=== PATIENT | female | born 1990 | race Caucasian/White ===

== ENCOUNTER 2018-10-24 18:39 | Emergency (ER) | payer BC ==
[2018-10-24 19:26] VITALS: TEMP 98.3; BMI 30.2
--- NOTE | 2018-10-24 20:14 | PDOC ---
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 the patient reports a LNPM of 09/10/18 and took a test 3 days ago that was positive and she started taking insertional progesterone at that time. She noted some vaginal spotting 3 days ago that was brown. She denies any prior history of ectopic pregnancies. She deneis fever, chest pain, shortness of breath, current abdominal pain, nausea, vomiting, dysuria, hematuria, diarrhea, cosntiaption. Past History - Past Medical History Allergies/Adverse Reactions: Allergies Allergy/AdvReac Type Severity Reaction Status Date / Time No Known Allergies Allergy Verified 10/24/18 18:57 Home Medications: Ambulatory Orders Nitrofurantoin Macrocrystal [Macrodantin -] 100 mg PO BID #10 capsule 10/24/18 Nitrofurantoin Macrocrystal [Macrodantin -] 100 mg PO BID #10 capsule 10/24/18 COPD: No - Immunization History Immunization Up to Date: Yes - Suicide/Smoking/Psychosocial Hx Smoking History: Never smoked Information on smoking cessation initiated: No Hx Alcohol Use: No Drug/Substance Use Hx: No Review of Systems - Review of Systems Able to Perform ROS?: Yes Comments:: 10/24/18 23:12 GENERAL/CONSTITUTIONAL: No fever or chills. No weakness. HEAD, EYES, EARS, NOSE AND THROAT: No change in vision. No ear pain or discharge. No sore throat. CARDIOVASCULAR: No chest pain or shortness of breath RESPIRATORY: No cough, wheezing, or hemoptysis. GASTROINTESTINAL: No nausea, vomiting, diarrhea or constipation. GENITOURINARY: No dysuria, frequency, or change in urination. MUSCULOSKELETAL: No joint or muscle swelling or pain. No neck or back pain. SKIN: No rash NEUROLOGIC: No headache, vertigo, loss of consciousness, or change in strength/ sensation. ENDOCRINE: No increased thirst. No abnormal weight change HEMATOLOGIC/LYMPHATIC: No anemia, easy bleeding, or history of blood clots. ALLERGIC/IMMUNOLOGIC: No hives or skin allergy. Is the patient limited Mauritian proficient: No *Physical Exam - Vital Signs Last Vital Signs Temp Pulse Resp BP Pulse Ox 98.3 F 111 H 18 119/74 99 10/24/18 18:58 10/24/18 18:58 10/24/18 18:58 10/24/18 18:58 10/24/18 18:58 - Physical Exam Comments: 10/24/18 21:25 GENERAL: Awake, alert, and fully oriented, in no acute distress HEAD: No signs of trauma, normocephalic, atraumatic EYES: EOMI, sclera anicteric, conjunctiva clear ENT: oropharynx clear without exudates. Moist mucosa NECK: Normal ROM, supple LUNGS: No distress, speaks full sentences, clear to auscultation bilaterally HEART: Regular rate and rhythm, normal S1 and S2, no murmurs, rubs or gallops, peripheral pulses normal and equal bilaterally. ABDOMEN: Soft, nontender, normoactive bowel sounds. No guarding, no rebound. No masses EXTREMITIES : Normal inspection, Normal range of motion, no edema. No clubbing or cyanosis. NEUROLOGICAL: Cranial nerves II through XII grossly intact. 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 the patient reports a LNPM of 09/10/18 and took a test 3 days ago that was positive and she started taking insertional progesterone at that time. She noted some vaginal spotting 3 days ago that was brown. She denies any prior history of ectopic pregnancies. She deneis fever, chest pain, shortness of breath, current abdominal pain, nausea, vomiting, dysuria, hematuria, diarrhea, cosntiaption. ED Course: ectopic vs iup vs spontaneous cbc, cmp, type and screen, coags labs wnl urine with small uti tvus with 5 week 5 days gestation, small echogenic structure 10/24/18 23:18 rhogam, abx obgyn referral, recheck beta hcg instructions, strict return precautiosn. d/c *DC/Admit/Observation/Transfer Diagnosis at time of Disposition: Vaginal bleeding, Abdominal pain - Discharge Dispostion Disposition: HOME Condition at time of disposition: Stable Decision to Admit order: No - Prescriptions Prescriptions: Nitrofurantoin Macrocrystal [Macrodantin -] 100 mg PO BID #10 capsule Nitrofurantoin Macrocrystal [Macrodantin -] 100 mg PO BID #10 capsule - Referrals Referrals: Abeba Harvey MD [Staff Physician] - Radha Castano DO [Staff Physician] - - Patient Instructions Printed Discharge Instructions: DI for Vaginal Bleeding During , DI for Vaginal Bleeding Additional Instructions: You were seen in the ED for complaints of abdominal pain and vaginal spotting. In the ED you were evaluated with labwork and imaging. Your results showed a small urinary tract infection and an intrauterine gestation of 5 weeks and 5 days. There does not appear to be an acute need for immediate hospitalization. You are advised to follow up with your Primary Care Physician within 1 week. You were given a referral to OBGYN and should follow up within 1 week. You were given a prescription for Nitrofurantoin and please take medication as prescribed. Recheck beta HCG in 2 days. Return to the ED for recheck if you cannot see your Primary Care or OBGYN within that time. Return to the ED immediately if you experience vaginal bleeding, worsening abdominal pain, fevers, nausea, vomiting or shortness of breath. - Post Discharge Activity
[2018-10-24 21:07] LABS: BASO % 0.6 % (0-2.0); EOS % 0.9 % (0-4.5); HEMATOCRIT 38.5 % (32.4-45.2); HEMOGLOBIN 12.5 GM/dL (10.7-15.3); LYMPH % 25.2 % (8-40); MCH 30.8 pg (25.7-33.7); MCHC 32.5 g/dl (32.0-36.0); MEAN CELL VOLUME 94.7 fl (80-96); MEAN PLT VOLUME 9.5 fl (7.5-11.1); MONO % 12.2 % (3.8-10.2); NEUT % 61.1 % (42.8-82.8); PLATELET COUNT 227 K/MM3 (134-434); RBC 4.07 M/mm3 (3.60-5.2); RDW 13.6 % (11.6-15.6)
[2018-10-24 21:29] LABS: PROTHROMBIN TIME (PATIENT) 11.8 SEC (9.7-13.0)
[2018-10-24 21:31] LABS: ACTIVATED PTT 33.2 SECONDS (25.2-36.5)
[2018-10-24 21:36] LABS: EPI CELLS 4.2 /HPF (0-5/HPF); PH,URINE 5.5 (5.0-8.0); URINE APPEARANCE CLEAR; URINE BACTERIA 30.3 /hpf (NEGATIVE); URINE BILIRUBIN NEGATIVE (NEGATIVE); URINE CASTS 2 /lpf (0-8); URINE COLOR YELLOW; URINE GLUCOSE (UA) NEGATIVE (NEGATIVE); URINE KETONE NEGATIVE (NEGATIVE); URINE LEUK ESTERASE 1+ (NEGATIVE); URINE NITRITE NEGATIVE (NEGATIVE); URINE PROTEIN NEGATIVE (NEGATIVE); URINE RBC 4 /hpf (0-4); URINE UROBILINOGEN 0.2 mg/dL (0.2-1.0); URINE WBC 9 /hpf (0-5)
[2018-10-24 21:38] LABS: ALBUMIN 4.3 g/dl (3.4-5.0); BILIRUBIN,TOTAL 0.3 mg/dL (0.2-1); CALCIUM 9.5 mg/dL (8.5-10.1); CREATININE 0.6 mg/dL (0.55-1.3); POTASSIUM 3.6 mmol/L (3.5-5.1); TOT PROT 8.1 g/dl (6.4-8.2)
[2018-10-24 21:45] LABS: YEAST NONE SEEN (NEGATIVE)
--- NOTE | 2018-10-24 22:46 | PDOC ---
Documentation entered by Courtney Azevedo SCRIBE, acting as scribe for Mary Ram DO. Mary Ram DO: This documentation has been prepared by the Roberto Carlos sparks Aiswarya, SCRIBE, under my direction and personally reviewed by me in its entirety. I confirm that the documentation accurately reflects all work, treatment, procedures, and medical decision making performed by me. Attending Attestation - Resident Resident Name: Yakelin Márquez - ED Attending Attestation I have performed the following: I have examined & evaluated the patient, The case was reviewed & discussed with the resident, I agree w/resident's findings & plan - HPI HPI: 10/24/18 21:41 The patient is a 28 year old female [id number], with a significant PMH of endometritis and multiple miscarriages, who is 6 weeks , presents to the emergency department with bilateral cramping that began today around 5 pm. The patient states she experienced mild spotting 3 days ago and took a insertional progesterone for the past 3 days. Patient also state she took a test 3 days ago and reports it to be positive. Today she complains of non radiating constant bilateral cramping with severity of 7/10. LMP was September 10. Denies any vaginal odor, pruritus or discharge. Denies fever, chills, nausea, vomit, diarrhea and constipation.Denies dysuria, frequency, urgency and hematuria. Allergies: NKDA Past surgical history:None reported Social history: None reported PCP: None reported - Physicial Exam PE: 10/24/18 21:41 Agrees with the residents note. - Medical Decision Making 10/24/18 22:45 28-year-old gravid female with pelvic cramping and spotting Ultrasound shows an approximate 5 week size sac with no detectable heart rate Patient is currently pain-free She is Rh- and did have some associated spotting, Eden will be given prior to discharge Patient given follow-up at a local [facility] office as requested
[2018-10-24] MEDS ORDERED: RHO(D) IMMUNE GLOBULIN 1,500 UNIT DISP.SYRIN IM ONE (22:50)
[2018-10-24] MEDS ORDERED: NITROFURANTOIN MACROCRYSTAL 50 MG CAPSULE (FP) PO SCH (23:00)
[2018-10-24] MEDS ORDERED: NITROFURANTOIN MACROCRYSTAL 50 MG CAPSULE (FP) ONE (23:15)
[2018-10-24 23:37] VITALS: BP 134/75; PULSE 79
== END 2018-10-24 23:37 | disposition home or self-care (01) ==
LOC: JER 18:39
PROC: 3E0337Z Introduction of Electrolytic and Water Balance Substance into Peripheral Vein, Percutaneous Approach (ICD-10-PCS; principal; 2018-10-24)
DX: O26.891 Other specified pregnancy related conditions, first trimester (principal); Z3A.01 Less than 8 weeks gestation of pregnancy; N93.9 Abnormal uterine and vaginal bleeding, unspecified; R10.9 Unspecified abdominal pain
CPT/HCPCS: 36415; 76817-TC; 80053; 81003; 84702; 85025; 85610; 85730; 86850; 86900; 86901; 86999; 99282-25; J1561